=== PATIENT | female | born 1965 | race Caucasian/White ===

== ENCOUNTER 2017-04-23 07:17 | Day surgery (SDC) | payer OTHER ==
[~2017-04-23 07:17] MED LIST: LIDOCAINE HCL 1% MPF SOL ONE; PROPOFOL 500 MG/50 ML EMU IV ONE
[2017-04-23] MEDS ORDERED: PROPOFOL 10 MG/ML EMU IV ONE (09:16)
[2017-04-23 10:10] VITALS: PULSE 82; RESP 14; TEMP 98.3; O2SAT 96
[2017-04-23 11:23] VITALS: BP 149/91
== END 2017-04-23 11:34 | disposition home or self-care (01) | DRG 951 ==
LOC: SURG 07:17
PROVIDERS: ATTEND Internal Medicine Gastroenterology
DX: Z12.11 Encounter for screening for malignant neoplasm of colon (principal); K50.90 Crohn's disease, unspecified, without complications; K62.4 Stenosis of anus and rectum; K52.9 Noninfective gastroenteritis and colitis, unspecified; Z98.0 Intestinal bypass and anastomosis status
CPT/HCPCS: 99001; J2001; J2704